=== PATIENT | male | born 1990 | race American Indian/Alaskan Native ===

== ENCOUNTER 2018-03-11 14:18 | Inpatient (IN) | payer OTHER ==
--- NOTE | 2018-03-11 14:32 | C.PDOC ---
History Of Present Illness 27 year old male presents to the ED for evaluation of left ankle injury that happened while playing soccer on 03/09/18. Patient states that foot accidnetaly "went back". Patient reports having swelling despite elevating the foot, patient also had outpatient MRI and XRays done. Patient is unable to weight bear. Patient denies other associated injuries, weakness, numbness. INJURY LEFT ANKLE 03/09/18. ONSET WHILE PLAYING SOCCER, PS FOOT ACCIDENTALLY "WENT BACK". INC PAIN, SWELLING DESPITE ELEVATION. UNABLE TO WEIGHT BEAR. DENIES OTHER ASSOC INJURY, SX. SP OUTPT MRI, XRAYS EXAM MILD DIST NONTOXIC EXT LLE +MOD/SEVERE SWELLING L ANKLE/FOOT W GEN TEND, NO GROSS DISLOCATION. LIMTIED ROM DUE TO SWELL, PAIN. +CAP REFILL <2 SECS TOES. WARM. +BRUISING DEPENDENT. SKIN INTACT NO ERYTHEMA NEURO NO FOCAL DEF LIMTIED DUE TO CLIN COND GAIT CRUTCH ASSISTANCE REMAINDER NEG MDM SEVERE ANKLE FX W ASSOC SWELL. D/W ORTHO PLASTIC ROLLER, PT TO BE ADMITTED FOR O.R. ORIF. ADMIT MEDICINE Time Seen by Provider: 03/11/18 14:29 Chief Complaint (Nursing): Lower Extremity Problem/Injury History Per: Patient History/Exam Limitations: no limitations Onset/Duration Of Symptoms: Days (2) Current Symptoms Are (Timing): Still Present Severity: Mild Recent travel outside of the [place]: No Additional History Per: Patient - Ankle/Foot Description Of Injury: Other Currently Unable To: Bear Weight Past Medical History Reviewed: Historical Data, Nursing Documentation, Vital Signs Vital Signs: Last Vital Signs Temp 98.2 F 03/11/18 14:22 Pulse 92 H 03/11/18 14:22 Resp 20 03/11/18 14:22 BP 117/73 03/11/18 14:22 Pulse Ox 99 03/11/18 14:59 - Medical History PMH: No Chronic Diseases Surgical History: No Surg Hx Family History: States: Unknown Family Hx - Social History Hx Alcohol Use: Yes Hx Substance Use: No Review Of Systems Constitutional: Negative for: Fever, Chills Respiratory: Negative for: Shortness of Breath Gastrointestinal: Negative for: Nausea, Vomiting Musculoskeletal: Positive for: Foot Pain Skin: Negative for: Rash Neurological: Negative for: Weakness, Numbness Physical Exam - Physical Exam Appears: Non-toxic, In Acute Distress (due to pain) Skin: Normal Color, Warm, Dry Head: Atraumatic, Normacephalic Eye(s): bilateral: Normal Inspection Neck: Normal ROM, Supple Chest: Symmetrical Cardiovascular: Rhythm Regular Respiratory: Normal Breath Sounds, No Rales, No Rhonchi, No Wheezing Extremity: No Normal ROM (limited due to swelling left ankle/foot), Tenderness ( left ankle/foot general tenderness), Capillary Refill (< 2 seconds), Swelling ( moderate/severe left ankle/foot), Other (no gross dislocation) Extremity: Left: Normal Color And Temperature (bruising noted, no erythema) Pulses: Left Dorsalis Pedis: Normal, Right Dorsalis Pedis: Normal Neurological/Psych: Oriented x3, Normal Speech, Other (non focal, limited due to clinical condition) Gait: With Assistance (crutch) ED Course And Treatment - Laboratory Results Result Diagrams: 03/11/18 15:14 03/11/18 15:14 ECG: Interpreted By Me, Viewed By Me ECG Rhythm: Sinus Rhythm ECG Interpretation: Normal Rate From EC (BPM) O2 Sat by Pulse Oximetry: 99 (On RA) Pulse Ox Interpretation: Normal - Radiology CXR: Interpreted by Me CXR Interpretation: Yes: No Acute Disease - Other Rad L ANKLE X-Ray: Interpreted by Me (MED, POSTERIOR MALL FX; NO DISLOC) Progress - Re-Evaluation Re-evaluation Note: 03/11/18 14:45 D/W DR GONZALEZ: AWARE OF ER FINDINGS. PREOP, PODIATRY RESIDENT, WILL CONSULT, ADMIT DR ROWELL C/F DR IRELAND 03/11/18 14:32 D/W DR SOTO C/F PMD AWARE OF ER FINDINGS, WILL ADMIT. 03/11/18 14:35 D/W PODIATRY RESIDENT, WILL EVAL IN ER - Data Reviewed Data Reviewed: Lab, Diagnostic imaging, EKG, Old records - Continuity of Care Discussed patient case with:: Covering for PMD Discussed pt. case with hospice consultant/specialty: Orthopedic Surgery, Podiatry Medical Decision Making Medical Decision Making: Impression: left ankle/foot fracture Plan: * Labs * EKG * CXR * IV fluids * Morphine 2 mg IVP * Zofran 4 mg IVP * Left ankle X-Ray * CT lower extremity * UA Severe ankle fracture with associated swelling. Discussed with ortho business analyst consultant, patient to be admitted for OR ORIF. Admitted to Medicine Disposition Counseled Patient/Family Regarding: Studies Performed, Diagnosis - Disposition Disposition: HOSPITALIZED Disposition Time: 14:32 Condition: STABLE - POA Present On Arrival: Falls Or Trauma - Clinical Impression Clinical Impression: Ankle fracture - Scribe Statement The provider has reviewed the documentation as recorded by the Scribe John Gibbs All medical record entries made by the Scribe were at my direction and personally dictated by me. I have reviewed the chart and agree that the record accurately reflects my personal performance of the history, physical exam, medical decision making, and the department course for this patient. I have also personally directed, reviewed, and agree with the discharge instructions and disposition. Decision To Admit - Pt Status Changed To: Hospital Disposition Of: Inpatient - Admit Certification Admit to Inpatient:: After my assessment, the patient will require hospitalization for at least two midnights. This is because of the severity of symptoms shown, intensity of services needed, and/or the medical risk in this patient being treated as an outpatient. - InPatient: Physician Admission Certification: I certify that this patient requires 2 or more midnights of care for the following reason:: SEE NOTE - . Bed Request Type: Regular Admitting Physician: Jade Soto Patient Diagnosis: Ankle fracture
[2018-03-11] MEDS ORDERED: Sodium Chloride 0.9% 1,000 ML IV ONE (14:33)
[2018-03-11] MEDS ORDERED: Sodium Chloride 0.9% 1,000 ML ONE (14:56)
[2018-03-11 15:25] LABS: BASO % 0.5 % (0.0-2.0); EOS # 0.1 K/uL (0.0-0.7); EOS % 1.1 % (0.0-4.0); HEMOGLOBIN 12.3 g/dL (12.0-18.0); LYMPH # 1.2 K/uL (1.0-4.3); LYMPH % 14.6 % (20.0-40.0); MEAN CELL VOLUME 86.4 fL (80.0-94.0); MEAN CORPUSCULAR HGB CONC 33.6 g/dL (33.0-37.0); MEAN PLATELET VOLUME 7.9 fL (7.2-11.7); MONO # 0.6 K/uL (0.0-0.8); MONO % 7.4 % (0.0-10.0); NEUT # 6.3 K/uL (1.8-7.0); NEUT % 76.4 % (50.0-75.0); RBC 4.25 Mil/uL (4.40-5.90); RED CELL DISTRIBUTION WIDTH 13.7 % (11.5-14.5); WHITE BLOOD COUNT 8.2 K/uL (4.8-10.8)
[2018-03-11 15:34] LABS: SQUAMOUS EPITHIAL < 1 /hpf (0-5); URINE BILIRUBIN NEGATIVE (NEGATIVE); URINE BLOOD NEGATIVE (NEGATIVE); URINE CLARITY Clear (Clear); URINE COLOR Yellow (YELLOW); URINE GLUCOSE (UA) NORMAL (Normal); URINE LEUKOCYTE ESTERASE NEG Leu/uL (Negative); URINE PROTEIN NEGATIVE (NEGATIVE); URINE UROBILINOGEN NORMAL mg/dL (0.2-1.0)
[2018-03-11 15:34] LABS: PROTHROMBIN TIME 11.4 SECONDS (9.7-12.2)
[2018-03-11 15:35] LABS: ALB/GLOB RATIO 1.7 (1.0-2.1); ALBUMIN 4.7 g/dL (3.5-5.0); ALT/SGPT 26 U/L (21-72); AST/SGOT 28 U/L (17-59); BLOOD UREA NITROGEN 13 mg/dL (9-20); CALCIUM 9.7 mg/dl (8.6-10.4); GFR AFRICAN-AMERICAN > 60; GFR NON-AFRICAN AMERICAN > 60
--- NOTE | 2018-03-11 15:44 | CP.PCM.HP ---
Addendum entered and electronically signed by Janes [place] 03/11/18 18:46: Plans for ORIF tomorrow Chest X-ray: No active disease EKG: NSR @ 70 BPM CBC and CMP wnl Patient has a low risk of complications for the procedure Original Note: <[place] - Last Filed: 03/11/18 18:29> History of Present Illness - History of Present Illness History of Present Illness: CC : Left ankle pain HPI: Patient is a 27 year old male with past medical history of childhood asthma who presents to the ED with complaints of left ankle injury that occurred on 03/09/18, while playing soccer. Patient reports that he twisted his ankle in lateral and backwards position while playing soccer. After the injury, patient was unable to bear weight, therefore, he borrowed his neighbor's crutches and kept his foot elevated. Furthermore, patient was seen at [facility] and was discharge with a script for outpatient MRI and XRays and naproxen. Patient reported to the ED today due to noted fracture on imaging outpatient. Patient admits to 04/25 left ankle pain but denies any other discomfort such as chest pain, SOB, palpitations, dizziness, left leg numbness and tingling. PMD: None PMHX: Childhood asthma PSHx: empyema drainage ( Head) FHX: Denies Medications: Denies Allergies: NKDA Social Hx: lives with family, student. Admits to 1/2 [facility] for 5 years, One alcoholic drink per week and denies any illicit drug use Present on Admission - Present on Admission Any Indicators Present on Admission: No Review of Systems - Constitutional Constitutional: absent: Chills, Fever - EENT Eyes: absent: Blurred Vision, Change in Vision - Cardiovascular Cardiovascular: Leg Edema. absent: Chest Pain, Diaphoresis, Dyspnea, Lightheadedness, Palpitations - Respiratory Respiratory: absent: Dyspnea - Gastrointestinal Gastrointestinal: absent: Abdominal Pain, Nausea, Vomiting - Musculoskeletal Musculoskeletal: Limited Range of Motion Additional comments: Left ankle limited ROM - Neurological Neurological: absent: Disequilibrium, Dizziness, Numbness, Headaches, Lack of Coordination, Loss of Vision, Tingling, Weakness - Endocrine Endocrine: absent: Fatigue, Palpitations Past Patient History - Past Social History Smoking Status: Never Smoked - PSYCHIATRIC Hx Substance Use: No - SURGICAL HISTORY Hx Surgeries: No Meds Allergies/Adverse Reactions: Allergies Allergy/AdvReac Type Severity Reaction Status Date / Time No Known Allergies Allergy Unverified 03/11/18 14:26 Physical Exam - Constitutional Appears: No Acute Distress - Head Exam Head Exam: ATRAUMATIC, NORMAL INSPECTION - Eye Exam Eye Exam: EOMI, Normal appearance - ENT Exam ENT Exam: Mucous Membranes Moist - Respiratory Exam Respiratory Exam: Clear to Auscultation Bilateral, NORMAL BREATHING PATTERN. absent: Prolonged Expiratory Phase, Rhonchi, Wheezes, Respiratory Distress - Cardiovascular Exam Cardiovascular Exam: REGULAR RHYTHM, +S1, +S2. absent: Systolic Murmur - GI/Abdominal Exam GI & Abdominal Exam: Normal Bowel Sounds, Soft. absent: Distended, Firm, Guarding, Tenderness - Extremities Exam Extremities exam: Positive for: joint swelling Additional comments: Left ankle swelling s/p medial malleolar fracture - Neurological Exam Neurological exam: Alert, CN II-XII Intact, Oriented x3 - Psychiatric Exam Psychiatric exam: Normal Affect - Skin Skin Exam: Normal Color Results - Vital Signs Recent Vital Signs: Last Vital Signs Temp 98.2 F 03/11/18 14:22 Pulse 92 H 03/11/18 14:22 Resp 20 03/11/18 14:22 BP 117/73 03/11/18 14:22 Pulse Ox 99 03/11/18 14:59 - Labs Result Diagrams: 03/11/18 15:14 03/11/18 15:14 Labs: Laboratory Results - last 24 hr 03/11/18 03/11/18 03/11/18 15:14 15:14 15:14 WBC 8.2 RBC 4.25 L Hgb 12.3 Hct 36.7 MCV 86.4 MCH 29.0 MCHC 33.6 RDW 13.7 Plt Count 236 MPV 7.9 Neut % (Auto) 76.4 H Lymph % (Auto) 14.6 L Gooding % (Auto) 7.4 Eos % (Auto) 1.1 Baso % (Auto) 0.5 Neut # (Auto) 6.3 Lymph # (Auto) 1.2 Gooding # (Auto) 0.6 Eos # (Auto) 0.1 Baso # (Auto) 0.0 PT 11.4 INR 1.0 APTT 32 Sodium 143 Potassium 4.1 Chloride 103 Carbon Dioxide 28 Anion Gap 16 BUN 13 Creatinine 1.1 Est GFR ( Amer) > 60 Est GFR (Non-Af Amer) > 60 Random Glucose 80 Calcium 9.7 Total Bilirubin 0.6 AST 28 ALT 26 Alkaline Phosphatase 47 Total Protein 7.5 Albumin 4.7 Globulin 2.8 Albumin/Globulin Ratio 1.7 Urine Color Urine Clarity Urine pH Ur Specific [place] Urine Protein Urine Glucose (UA) Urine Ketones Urine Blood Urine Nitrate Urine Bilirubin Urine Urobilinogen Ur Leukocyte Esterase Urine WBC (Auto) Urine RBC (Auto) Ur Squamous Epith Cells Blood Type 03/11/18 03/11/18 15:18 15:18 WBC RBC Hgb Hct MCV MCH MCHC RDW Plt Count MPV Neut % (Auto) Lymph % (Auto) Gooding % (Auto) Eos % (Auto) Baso % (Auto) Neut # (Auto) Lymph # (Auto) Gooding # (Auto) Eos # (Auto) Baso # (Auto) PT INR APTT Sodium Potassium Chloride Carbon Dioxide Anion Gap BUN Creatinine Est GFR ( Amer) Est GFR (Non-Af Amer) Random Glucose Calcium Total Bilirubin AST ALT Alkaline Phosphatase Total Protein Albumin Globulin Albumin/Globulin Ratio Urine Color Yellow Urine Clarity Clear Urine pH 6.0 Ur Specific [place] 1.013 Urine Protein Negative Urine Glucose (UA) Normal Urine Ketones Negative Urine Blood Negative Urine Nitrate Negative Urine Bilirubin Negative Urine Urobilinogen Normal Ur Leukocyte Esterase Neg Urine WBC (Auto) 2 Urine RBC (Auto) < 1 Ur Squamous Epith Cells < 1 Blood Type B POSITIVE Assessment & Plan (1) Medial malleolar fracture Assessment and Plan: Consult, Orthopedics, Dr. Mtz---> Help appreciated * Management as per recommendation * Plans for ORIF 03/12/18 Imaging: Lower extremity CT (03/11/18): Horizontally oriented fracture deformity through the medial malleolus of the distal tibia with extension to the circumferential cortices as well as intra-articular extension. Vertically-oriented intra- articular fracture deformity through the posterior malleolus of the distal tibia. Punctate ossific density seen at the expected location of the posterior talofibular ligament, nonspecific. Small avulsion injury can't be excluded. Clinical correlation. Correlation with MRI may be helpful if clinically indicated. Left ankle X-ray (03/11/18): Medial malleolar fracture, acute. Medications: * Morphine 2mg IV q4h prn * Morphine 1mg IV q4h prn Status: Acute (2) Prophylactic measure Assessment and Plan: DVT: Heparin 5,000 units once GI: Pepcid 20mg PO BID All plans and management discussed with Dr. Soto Status: Acute <BrittanyJade V - Last Filed: 03/11/18 22:27> Results - Vital Signs Recent Vital Signs: Last Vital Signs Temp 98.2 F 03/11/18 14:22 Pulse 92 H 03/11/18 14:22 Resp 20 03/11/18 14:22 BP 117/73 03/11/18 14:22 Pulse Ox 99 03/11/18 15:43 - Labs Result Diagrams: 03/11/18 15:14 03/11/18 15:14 Labs: Laboratory Results - last 24 hr 03/11/18 03/11/18 03/11/18 15:14 15:14 15:14 WBC 8.2 RBC 4.25 L Hgb 12.3 Hct 36.7 MCV 86.4 MCH 29.0 MCHC 33.6 RDW 13.7 Plt Count 236 MPV 7.9 Neut % (Auto) 76.4 H Lymph % (Auto) 14.6 L Gooding % (Auto) 7.4 Eos % (Auto) 1.1 Baso % (Auto) 0.5 Neut # (Auto) 6.3 Lymph # (Auto) 1.2 Gooding # (Auto) 0.6 Eos # (Auto) 0.1 Baso # (Auto) 0.0 PT 11.4 INR 1.0 APTT 32 Sodium 143 Potassium 4.1 Chloride 103 Carbon Dioxide 28 Anion Gap 16 BUN 13 Creatinine 1.1 Est GFR ( Amer) > 60 Est GFR (Non-Af Amer) > 60 Random Glucose 80 Calcium 9.7 Total Bilirubin 0.6 AST 28 ALT 26 Alkaline Phosphatase 47 Total Protein 7.5 Albumin 4.7 Globulin 2.8 Albumin/Globulin Ratio 1.7 Urine Color Urine Clarity Urine pH Ur Specific [place] Urine Protein Urine Glucose (UA) Urine Ketones Urine Blood Urine Nitrate Urine Bilirubin Urine Urobilinogen Ur Leukocyte Esterase Urine WBC (Auto) Urine RBC (Auto) Ur Squamous Epith Cells Blood Type Antibody Screen 03/11/18 03/11/18 15:18 15:18 WBC RBC Hgb Hct MCV MCH MCHC RDW Plt Count MPV Neut % (Auto) Lymph % (Auto) Gooding % (Auto) Eos % (Auto) Baso % (Auto) Neut # (Auto) Lymph # (Auto) Gooding # (Auto) Eos # (Auto) Baso # (Auto) PT INR APTT Sodium Potassium Chloride Carbon Dioxide Anion Gap BUN Creatinine Est GFR ( Amer) Est GFR (Non-Af Amer) Random Glucose Calcium Total Bilirubin AST ALT Alkaline Phosphatase Total Protein Albumin Globulin Albumin/Globulin Ratio Urine Color Yellow Urine Clarity Clear Urine pH 6.0 Ur Specific [place] 1.013 Urine Protein Negative Urine Glucose (UA) Normal Urine Ketones Negative Urine Blood Negative Urine Nitrate Negative Urine Bilirubin Negative Urine Urobilinogen Normal Ur Leukocyte Esterase Neg Urine WBC (Auto) 2 Urine RBC (Auto) < 1 Ur Squamous Epith Cells < 1 Blood Type B POSITIVE Antibody Screen Negative Assessment & Plan (1) Prophylactic measure Status: Acute (2) Ankle fracture Status: Acute Attending/Attestation - Attestation I have personally seen and examined this patient.: Yes I have fully participated in the care of the patient.: Yes I have reviewed all pertinent clinical information: Yes Notes (Text): Patient seen, examined, and case discussed with registered medical assistant. The patient was playing soccer fell and injured his left ankle. It went [facility] but was discharged with naproxen and scripts to do follow-up imaging. Patient was seen by his primary care recommended to come to the hospital for admission under the hospitalist service and orthopedic evaluation. Patient has no prior medical history and is relatively healthy individual. Assessment/Plan 1) Left Ankle Injury Left Ankle Fracture Assessment/Plan Orthopedic is on the case. Orthopedic responsible for preoperative intraoperative and postoperative management. Anticoagulation per orthopedic. Patient has completed chest x-ray which shows no active disease. Patient has completed CT lower extremity which indicates a horizontal oriented fracture deformity through the medial malleolus of the distal tibia with extension to the circumferential cortices as well as intra-articular extension. Vertical orientated intra-articular fracture deformity through the posterior malleolus of the distal tibia. A punctate ossific density seen at the expected location of the posterior talofibular ligament nonspecific small evulsion injury cannot be excluded. Left ankle fracture showing acute medial medical malleolar fracture. We'll start morphine 2 mg IV every 4 for severe pain and morphine 1 mg IV for moderate pain. We'll start Zofran 4 mg IV every 6 when necessary for nausea. Patient is scheduled tentatively for the OR tomorrow. Patient is a low risk individual with no prior history. Surgery and anesthesia to explain the risks and benefits of procedure with the patient prior to or respectively.
--- NOTE | 2018-03-11 16:23 | CT ---
CT left ankle History: Trauma. Comparison: None available. Technique: Multiple contiguous axial images were performed through the left ankle without the use of intravenous contrast. Subsequently, sagittal and coronal reformatted images were obtained. This CT exam was performed using one or more of the following dose reduction techniques: Automated exposure control, adjustment of the mA and/or kV according to patient size, and/or use of iterative reconstruction technique. Findings: Prominent medial and lateral malleolar soft tissue swelling. Horizontally oriented fracture deformity through the medial malleolus of the distal tibia with extension to the circumferential cortices as well as intra-articular extension. Vertically-oriented intra-articular fracture deformity through the posterior malleolus of the distal tibia. Punctate ossific density seen at the expected location of the posterior talofibular ligament, nonspecific. Small avulsion injury can't be excluded. Clinical correlation. Correlation with MRI may be helpful if clinically indicated. Impression: Horizontally oriented fracture deformity through the medial malleolus of the distal tibia with extension to the circumferential cortices as well as intra-articular extension. Vertically-oriented intra-articular fracture deformity through the posterior malleolus of the distal tibia. Punctate ossific density seen at the expected location of the posterior talofibular ligament, nonspecific. Small avulsion injury can't be excluded. Clinical correlation. Correlation with MRI may be helpful if clinically indicated.
--- NOTE | 2018-03-11 16:30 | RAD ---
PROCEDURE: CHEST RADIOGRAPH, 1 VIEW HISTORY: Pre Op COMPARISON: None available. FINDINGS: LUNGS: Clear. PLEURA: No pneumothorax or pleural fluid seen. CARDIOVASCULAR: Normal. OSSEOUS STRUCTURES: No significant abnormalities. VISUALIZED UPPER ABDOMEN: Normal. OTHER FINDINGS: None. IMPRESSION: No active disease. Concordant results with the preliminary interpretation rendered by the emergency department physician procedure.
--- NOTE | 2018-03-11 16:30 | RAD ---
PROCEDURE: Left Ankle Radiographs. HISTORY: TRAUMA COMPARISON: March 11, 2018. CT left ankle. FINDINGS: BONES: Distal fibular fracture, old lateral malleolar region. JOINTS: Normal. No osteoarthritis. Ankle mortise maintained. Talar dome intact SOFT TISSUES: Soft tissue swelling attests to the acuity of the fracture. OTHER FINDINGS: None. IMPRESSION: Medial malleolar fracture, acute.
[2018-03-12 06:39] LABS: BASO % 0.7 % (0.0-2.0); EOS # 0.3 K/uL (0.0-0.7); HEMOGLOBIN 11.9 g/dL (12.0-18.0); LYMPH # 2.3 K/uL (1.0-4.3); LYMPH % 36.6 % (20.0-40.0); MEAN CELL VOLUME 87.4 fL (80.0-94.0); MEAN CORPUSCULAR HEMOGLOBIN 29.4 pg (27.0-31.0); MEAN CORPUSCULAR HGB CONC 33.7 g/dL (33.0-37.0); MEAN PLATELET VOLUME 8.1 fL (7.2-11.7); MONO # 0.5 K/uL (0.0-0.8); MONO % 8.4 % (0.0-10.0); NEUT # 3.2 K/uL (1.8-7.0); NEUT % 50.3 % (50.0-75.0); RBC 4.06 Mil/uL (4.40-5.90); RED CELL DISTRIBUTION WIDTH 13.7 % (11.5-14.5); WHITE BLOOD COUNT 6.3 K/uL (4.8-10.8)
[2018-03-12 06:48] LABS: ALB/GLOB RATIO 1.5 (1.0-2.1); ALBUMIN 3.9 g/dL (3.5-5.0); ALT/SGPT 25 U/L (21-72); AST/SGOT 24 U/L (17-59); BLOOD UREA NITROGEN 14 mg/dL (9-20); CALCIUM 9.1 mg/dl (8.6-10.4); GFR AFRICAN-AMERICAN > 60; GFR NON-AFRICAN AMERICAN > 60
[2018-03-12] MEDS ORDERED: ceFAZolin IV 1 gm in Dextrose 2 GM/100 ML BAG IVPB ONE ×2 (07:33→09:55)
[2018-03-12] MEDS ORDERED: Midazolam 2 MG/2 ML VIAL ONE (07:37)
[2018-03-12] MEDS ORDERED: Propofol 10 mg/ml Inj (20 ML) ONE ×2 (07:38→09:47)
[2018-03-12] MEDS ORDERED: Rocuronium 10 mg/ml (5 ml) ONE (07:39)
[2018-03-12] MEDS ORDERED: ePHEDrine 50 mg/ml Inj ONE (08:09)
[2018-03-12] MEDS ORDERED: Oxycodone/Acetaminophen 5/325 mg Tab PO PRN ×2 (10:19)
[2018-03-12] MEDS ORDERED: HYDROmorphone 0.5 mg/0.5 ml ISec IVP PRN (10:28)
[2018-03-12 10:47] VITALS: O2SAT 100
[2018-03-12] MEDS ORDERED: Bupivacaine HCl 0.5% PF (30 ml) Inj ONE (11:04)
[2018-03-12] MEDS ORDERED: Lidocaine Hydrochloride 5 ML INJ ONE (11:04)
[2018-03-12] MEDS ORDERED: Bupivacaine 0.5% Inj(30mL) IJ ONE (11:18)
--- NOTE | 2018-03-12 11:28 | PCM.ANESB2 ---
Popliteal Nerve Block - Popliteal Nerve Block Date of Procedure: 03/12/18 Anesthesiologist: Gabriela Pre-Procedure Diagnosis: left ankle ORIF Post-Procedure Diagnosis: same Procedure Performed: Popliteal Nerve Block Left - Procedure Popliteal Nerve Block: This procedure was explained to the patient that it is for post-operative pain management. Consent was obtained after a thorough discussion with the patient regarding the benefits and possible complications of local anesthetic block of the sciatic nerve at the popliteal level. The patient was brought to the operating room and standard monitors are applied. Time-out was held with the circulating nurse to confirm the correct surgery and the appropriate block. After applying oxygen by nasal cannula and administering IV Sedation, patient's operative leg was gently raised and supported and the groove in between the biceps femoris and vastus lateralis muscles was carefully palpated. The skin approximately 8cm above the popliteal crease was then marked. The ultrasound transducer was then applied to the posterior thigh approximately 8cm above the popliteal crease in the transverse plane and the sciatic nerve before its division was visualized lateral to the popliteal artery and in between the bicep femoris and semimembranosus/semitendinosus muscles. After identification, the lateral portion of the thigh was prepped with Betadine solution three times and Lidocaine 1% was injected subcutaneously for topical anesthesia. At this point, a # 21 gauge Stimuplex insulated 4 inch needle was inserted into pre-marked area and advanced in a perpendicular direction. The needle was inserted above the ultrasound transducer in-plane towards the sciatic nerve in a [id number] direction. Needle advancement was performed carefully under direct ultrasound visualization. Nerve stimulator was used and dorsiflexion of the __left___ foot was elicited at a current of __0.4___ MA. After repeated negative aspiration, __5___cc of __0.5___ % __Bupivacaine was injected and this was flowed with __25____ cc of __0.5____% __Bupivacaine ___. Under ultrasound guidance the local anesthetics were observed surrounding sciatic nerve . The needle was removed intact and sterile dressing was applied. The patient tolerated the popliteal nerve block well with stable vital signs and was subsequently prepared for the surgery.
--- NOTE | 2018-03-12 11:43 | CP.PCM.PN ---
Subjective - Date & Time of Evaluation Date of Evaluation: 03/12/18 Time of Evaluation: 07:05 - Subjective Subjective: Medicine progress note ( Dr. Yaya Way's service) Pateint was seen and examined at bedside. Patient states he is doing well. Patient denies fever, chills, chest pain, SOB, palpitations, dizziness or any other discomfort. During the encounter, patient's pain was very well controlled. Objective - Vital Signs/Intake and Output Vital Signs (last 24 hours): Temp Pulse Resp BP Pulse Ox 97.2 F L 85 15 131/81 100 03/12/18 11:00 03/12/18 11:00 03/12/18 11:00 03/12/18 11:00 03/12/18 11:00 Intake and Output: 03/12/18 03/12/18 06:59 18:59 Intake Total 0 1400 Output Total 400 Balance -400 1400 - Medications Medications: Current Medications Acetaminophen (Tylenol 325mg Tab) 650 mg PO Q6 PRN PRN Reason: Pain, Mild (1-3) Famotidine (Pepcid) 20 mg PO BID VALENCIA Last Admin: 03/11/18 18:16 Dose: 20 mg Hydromorphone HCl (Dilaudid) 0.5 mg IVP Q5M PRN PRN Reason: Pain, moderate (4-7) Stop: 03/12/18 12:28 Last Admin: 03/12/18 10:56 Dose: 0.5 mg Morphine Sulfate (Morphine) 2 mg IVP Q4 PRN PRN Reason: Pain, severe (8-10) Last Admin: 03/12/18 05:44 Dose: 2 mg Morphine Sulfate (Morphine) 1 mg IVP Q4 PRN PRN Reason: Pain, moderate (4-7) Last Admin: 03/12/18 02:10 Dose: 1 mg Ondansetron HCl (Zofran Inj) 4 mg IVP Q6H PRN PRN Reason: Nausea/Vomiting Oxycodone/Acetaminophen (Percocet 5/325 Mg Tab) 1 tab PO Q4H PRN PRN Reason: Pain, moderate (4-7) Stop: 03/15/18 10:20 Oxycodone/Acetaminophen (Percocet 5/325 Mg Tab) 2 tab PO Q4H PRN PRN Reason: Pain, severe (8-10) Stop: 03/15/18 10:20 - Labs Labs: 03/12/18 06:21 03/12/18 06:21 PT 11.4 SECONDS (9.7-12.2) 03/11/18 15:14 INR 1.0 03/11/18 15:14 APTT 32 SECONDS (21-34) 03/11/18 15:14 - Constitutional Appears: Well, No Acute Distress - Head Exam Head Exam: ATRAUMATIC, NORMAL INSPECTION - Eye Exam Eye Exam: EOMI - ENT Exam ENT Exam: Mucous Membranes Moist - Respiratory Exam Respiratory Exam: Clear to Ausculation Bilateral, NORMAL BREATHING PATTERN. absent: Prolonged Expiratory Phase, Rhonchi, Wheezes, Respiratory Distress - Cardiovascular Exam Cardiovascular Exam: REGULAR RHYTHM, +S1, +S2. absent: Murmur - GI/Abdominal Exam GI & Abdominal Exam: Soft, Normal Bowel Sounds. absent: Firm, Guarding, Rigid, Tenderness - Extremities Exam Extremities Exam: Joint Swelling Additional comments: Left ankle swelling s/p medial malleolar fracture ROCHELLE wrap for compression present with elevation - Neurological Exam Neurological Exam: Alert, Awake, Oriented x3 - Psychiatric Exam Psychiatric exam: Normal Affect - Skin Skin Exam: Normal Color Assessment and Plan (1) Medial malleolar fracture Assessment & Plan: onsult, Orthopedics, Dr. Mtz---> Help appreciated * Management as per recommendation * Plans for ORIF 03/12/18, we follow up post-op Imaging: Lower extremity CT (03/11/18): Horizontally oriented fracture deformity through the medial malleolus of the distal tibia with extension to the circumferential cortices as well as intra-articular extension. Vertically-oriented intra- articular fracture deformity through the posterior malleolus of the distal tibia. Punctate ossific density seen at the expected location of the posterior talofibular ligament, nonspecific. Small avulsion injury can't be excluded. Clinical correlation. Correlation with MRI may be helpful if clinically indicated. Left ankle X-ray (03/11/18): Medial malleolar fracture, acute. Medications: * Morphine 2mg IV q4h prn * Morphine 1mg IV q4h prn * OIL PRODUCER pump, post-Op Status: Acute (2) Prophylactic measure Assessment & Plan: DVT: Heparin 5,000 units once GI: Pepcid 20mg PO BID All plans and management discussed with Dr. Yaya Way Status: Acute
--- NOTE | 2018-03-12 12:39 | RAD ---
PROCEDURE: Intraoperative Fluoroscopy. HISTORY: Fracture left ankle FINDINGS: Fluoroscopic assistance was provided for open reduction internal fixation of a left ankle fracture. Please refer to the operative report from KAYLIN Shipman DR, MD.
--- NOTE | 2018-03-12 14:41 | PCM.SURG1 ---
Surgeon's Initial Post Op Note - Surgeon's Notes Surgeon: Dr. Pedro Social Media Developer: Dr. Trista Chavez Type of Anesthesia: General Endo Anesthesia Administered By: Dr. Jaimes Pre-Operative Diagnosis: Left ankle displaced fracture of medial malleolus, non- displaced fracture of posterior malleolus, syndesmotic rupture Operative Findings: 4.0mm cancellous screw, Arthrex Tightrope, 2-0, 3-0 vicryl, surgical bereket Post-Operative Diagnosis: same Operation Performed: Left ankle open reduction and internal fixation Specimen/Specimens Removed: None Estimated Blood Loss: EBL {In ML}: 20 Blood Products Given: N/A Drains Used: No Drains Post-Op Condition: Good Date of Surgery/Procedure: 03/12/18 Time of Surgery/Procedure: 07:15
[2018-03-12 15:53] VITALS: BP 116/76; PULSE 85; RESP 16; TEMP 97.9
--- NOTE | 2018-03-12 15:56 | CP.PCM.DIS ---
Provider - Provider Date of Admission: 03/11/18 14:40 Attending physician: Jade Soto DO Time Spent in preparation of Discharge (in minutes): 45 Diagnosis - Discharge Diagnosis (1) Medial malleolar fracture Status: Acute (2) Prophylactic measure Status: Acute Hospital Course - Lab Results Lab Results: Most Recent Lab Values WBC 6.3 K/uL (4.8-10.8) 03/12/18 06:21 RBC 4.06 Mil/uL (4.40-5.90) L 03/12/18 06:21 Hgb 11.9 g/dL (12.0-18.0) L 03/12/18 06:21 Hct 35.5 % (35.0-51.0) 03/12/18 06:21 MCV 87.4 fL (80.0-94.0) 03/12/18 06:21 MCH 29.4 pg (27.0-31.0) 03/12/18 06:21 MCHC 33.7 g/dL (33.0-37.0) 03/12/18 06:21 RDW 13.7 % (11.5-14.5) 03/12/18 06:21 Plt Count 206 K/uL (130-400) 03/12/18 06:21 MPV 8.1 fL (7.2-11.7) 03/12/18 06:21 Neut % (Auto) 50.3 % (50.0-75.0) 03/12/18 06:21 Lymph % (Auto) 36.6 % (20.0-40.0) 03/12/18 06:21 [place] % (Auto) 8.4 % (0.0-10.0) 03/12/18 06:21 Eos % (Auto) 4.0 % (0.0-4.0) 03/12/18 06:21 Baso % (Auto) 0.7 % (0.0-2.0) 03/12/18 06:21 Neut # (Auto) 3.2 K/uL (1.8-7.0) 03/12/18 06:21 Lymph # (Auto) 2.3 K/uL (1.0-4.3) 03/12/18 06:21 [place] # (Auto) 0.5 K/uL (0.0-0.8) 03/12/18 06:21 Eos # (Auto) 0.3 K/uL (0.0-0.7) 03/12/18 06:21 Baso # (Auto) 0.0 K/uL (0.0-0.2) 03/12/18 06:21 PT 11.4 SECONDS (9.7-12.2) 03/11/18 15:14 INR 1.0 03/11/18 15:14 APTT 32 SECONDS (21-34) 03/11/18 15:14 Sodium 140 mmol/L (132-148) 03/12/18 06:21 Potassium 4.1 mmol/L (3.6-5.2) 03/12/18 06:21 Chloride 104 mmol/L (98-107) 03/12/18 06:21 Carbon Dioxide 27 mmol/L (22-30) 03/12/18 06:21 Anion Gap 13 (10-20) 03/12/18 06:21 BUN 14 mg/dL (9-20) 03/12/18 06:21 Creatinine 1.0 mg/dL (0.8-1.5) 03/12/18 06:21 Est GFR ( Amer) > 60 03/12/18 06:21 Est GFR (Non-Af Amer) > 60 03/12/18 06:21 Random Glucose 90 mg/dL (75-110) 03/12/18 06:21 Calcium 9.1 mg/dl (8.6-10.4) 03/12/18 06:21 Phosphorus 4.1 mg/dL (2.5-4.5) 03/12/18 06:21 Magnesium 2.2 mg/dL (1.6-2.3) 03/12/18 06:21 Total Bilirubin 0.5 mg/dL (0.2-1.3) 03/12/18 06:21 AST 24 U/L (17-59) 03/12/18 06:21 ALT 25 U/L (21-72) 03/12/18 06:21 Alkaline Phosphatase 43 U/L (38-126) 03/12/18 06:21 Total Protein 6.4 g/dL (6.3-8.3) 03/12/18 06:21 Albumin 3.9 g/dL (3.5-5.0) 03/12/18 06:21 Globulin 2.6 gm/dL (2.2-3.9) 03/12/18 06:21 Albumin/Globulin Ratio 1.5 (1.0-2.1) 03/12/18 06:21 Urine Color Yellow (YELLOW) 03/11/18 15:18 Urine Clarity Clear (Clear) 03/11/18 15:18 Urine pH 6.0 (5.0-8.0) 03/11/18 15:18 Ur Specific [place] 1.013 (1.003-1.030) 03/11/18 15:18 Urine Protein Negative mg/dL (NEGATIVE) 03/11/18 15:18 Urine Glucose (UA) Normal mg/dL (Normal) 03/11/18 15:18 Urine Ketones Negative mg/dL (NEGATIVE) 03/11/18 15:18 Urine Blood Negative (NEGATIVE) 03/11/18 15:18 Urine Nitrate Negative (NEGATIVE) 03/11/18 15:18 Urine Bilirubin Negative (NEGATIVE) 03/11/18 15:18 Urine Urobilinogen Normal mg/dL (0.2-1.0) 03/11/18 15:18 Ur Leukocyte Esterase Neg Avani/uL (Negative) 03/11/18 15:18 Urine WBC (Auto) 2 /hpf (0-5) 03/11/18 15:18 Urine RBC (Auto) < 1 /hpf (0-3) 03/11/18 15:18 Ur Squamous Epith Cells < 1 /hpf (0-5) 03/11/18 15:18 Blood Type B POSITIVE 03/11/18 15:18 Antibody Screen Negative 03/11/18 15:18 - Hospital Course Hospital Course: HPI ( As per admission): Patient is a 27 year old male with past medical history of childhood asthma who presents to the ED with complaints of left ankle injury that occurred on 03/09/18, while playing soccer. Patient reports that he twisted his ankle in lateral and backwards position while playing soccer. After the injury, patient was unable to bear weight, therefore, he borrowed his neighbor's crutches and kept his foot elevated. Furthermore, patient was seen at [facility] [place] and was discharge with a script for outpatient MRI and XRays and naproxen. Patient reported to the ED today due to noted fracture on imaging outpatient. Patient admits to 8/10 left ankle pain but denies any other discomfort such as chest pain, SOB, palpitations, dizziness, left leg numbness and tingling. Hospital Course: Patient was admitted with the diagnosis of left medial malleolar fracture. Orthopedics, Dr. Pedro was consulted, who performed a Left ankle open reduction and internal fixation on Day 2 of admission. Patient tolerated procedure well and was discharge with appropriate instructions and prescription by Dr. Pedro. Pertinent imaging: Lower extremity CT (03/11/18): Horizontally oriented fracture deformity through the medial malleolus of the distal tibia with extension to the circumferential cortices as well as intra-articular extension. Vertically-oriented intra- articular fracture deformity through the posterior malleolus of the distal tibia. Punctate ossific density seen at the expected location of the posterior talofibular ligament, nonspecific. Small avulsion injury can't be excluded. Clinical correlation. Correlation with MRI may be helpful if clinically indicated. Left ankle X-ray (03/11/18): Medial malleolar fracture, acute. Chest X-ray: No active disease EKG: NSR @ 70 BPM This is a brief summary of event. For a complete course, please refer to the medical records Discharge Exam - Head Exam Head Exam: ATRAUMATIC, NORMAL INSPECTION - Eye Exam Eye Exam: EOMI, Normal appearance - ENT Exam ENT Exam: Mucous Membranes Moist - Respiratory Exam Respiratory Exam: Clear to PA & Lateral, NORMAL BREATHING PATTERN. absent: Chest Wall Tenderness, Decreased Breath Sounds, Wheezes, Respiratory Distress - Cardiovascular Exam Cardiovascular Exam: REGULAR RHYTHM, +S1, +S2 - GI/Abdominal Exam GI & Abdominal Exam: Normal Bowel Sounds, Soft. absent: Distended, Firm, Hypoactive Bowel Sounds, Organomegaly, Tenderness, Unremarkable - Extremities Exam Additional comments: S/P Left ankle open reduction and internal fixation POD # 0 Dressing/ cast intact and clean - Neurological Exam Neurological exam: Alert, Oriented x3 - Psychiatric Exam Psychiatric exam: Normal Affect - Skin Skin Exam: Normal Color Discharge Plan - Follow Up Plan Condition: STABLE Disposition: HOME/ ROUTINE Instructions: Ankle Fracture (DC), Open Reduction and Internal Fixation Surgery (DC), Managing Pain After Surgery Additional Instructions: Please discharge patient home as per Dr. Pedro's request Please follow discharge instruction as given to patient's counselor prior to the surgery by Dr. Pedro Please follow up with Dr. Pedro at his office, Saturday, March 16, 2018 at 9: 30am No weight bearing on the left extremity or surgical site Please continue to use pain medication (Percocet ) and aspirin as instructed by Dr. Pedro Please use your crutches as instructed by Dr. Pedro and physical therapy Please return to the hospital if pain worsens, increasing swelling, loss of sensation Please take care Referrals: Lizzy Pedro MD [Staff Provider] -
--- NOTE | 2018-03-12 22:24 | CARD ---
APPROVED REPORT EKG Measurement Heart [id number] <Conclusion> Normal sinus rhythm Normal ECG
--- NOTE | 2018-03-18 02:08 | CP.PCM.CON ---
History of Present Illness - History of Present Illness History of Present Illness: 27 yo Male, no significant PMH presented to the ER at on 03/11/18 w/ Left ankle pain and swelling since 03/09/18. he states that on 03/09/18, he was playing recreational soccer when he twisted his L ankle, ankle hyper- plantarflexed and he landed on the L ankle resulting in immediate 10/10 pain and swelling at his left ankle. He has not been able to weight bear since the injury. He saw his PCP, Dr. Eldridge who referred him for x-rays and stat MRI L ankle. Once the results of the MRI and x-rays were reported to Dr. Eldridge, he referred the pt to the ER at . He requested orthopedic consultation, I evaluated the pt as an ER pt at on 03/11/18. I confirmed the above history and reviewed the imaging available. Review of imaging: x-rays L ankle 03/11/18 at = ++ displaced medial maleolus fracture, ++ min displaced posterior maleolus fracture, ++ syndesmotic widening MRI done at [facility] 03/10/18= ++ displaced medial maleolus fracture, ++ min displaced posterior maleolus fracture, ++ syndesmotic widening/tear, + AFTL and deltoid ligaments high-grade partial tears CT L ankle 03/11/18 at = ++ displaced medial maleolus fracture, ++ min displaced posterior maleolus fracture, ++ syndesmotic widening Past Patient History - Past Medical History & Family History Past Medical History?: Yes - Past Social History Smoking Status: Never Smoked - MUSCULOSKELETAL/RHEUMATOLOGICAL Hx Falls: No - PSYCHIATRIC Hx Substance Use: No - SURGICAL HISTORY Hx Surgeries: No - ANESTHESIA Hx Anesthesia: Yes Hx Anesthesia Reactions: No Meds Allergies/Adverse Reactions: Allergies Allergy/AdvReac Type Severity Reaction Status Date / Time No Known Allergies Allergy Unverified 03/11/18 14:26 Physical Exam - Extremities Exam Additional comments: Right Lower Extremity:-ttp, - swelling/warmth/redness, full ROM at all joints w/ o pain skin intact +5/5 motor strength hip flex/ext, knee flex/ext, ankle df/pf, toes up & down sensory intact L2-S1, DPN/SPN/TN, 2+ DP, BCR all toes calves soft/ nt B/L Left Lower Extremity: +++ global ttp worse at medial & posterior mal, ++ ttp at syndesmosis/ATFL/Deltoid ligaments +++ global swelling, skin intact, + deformity at medial mal -warmth/redness, full ROM at hip/knee/toes, ankle ROM limited by pain +5/5 motor strength hip flex/ext, knee flex/ext, ankle df/pf, toes up & down sensory intact L2-S1, DPN/SPN/TN, 2+ DP, BCR all toes Results - Vital Signs Recent Vital Signs: Last Vital Signs Temp 97.9 F 03/12/18 12:13 Pulse 85 03/12/18 12:13 Resp 16 03/12/18 12:13 BP 116/76 03/12/18 12:13 Pulse Ox 100 03/12/18 12:00 - Labs Result Diagrams: 03/12/18 06:21 03/12/18 06:21 Assessment & Plan (1) Ankle fracture Assessment and Plan: 27 yo Male w/ L ankle pain and swelling with inability to weight bear since 03/09, soccer injury, presented to the ER at on 03/11/18 referred by PCP, Dr. Eldridge Dx= L ankle #1 displaced medial maleolus fracture #2 min-displaced posterior maleolus fracture #3 syndesmotic instability/tear #4 high grade partial tear deltoid ligament #5 high grade partial tear ATFL Procedure= L ankle underwent closed reduction of medial mal/ posterior mal fx 's, closed tx ATFL/sydesmotic/deltoid tears and placement in well padded short leg splint in ER at on 03/11/18 PLAN: L ankle: -closed reduction and placement in short leg well padded splint in ER -x-ray, CT, MRI findings d/w pt at length -he is an active healthy young male, currently here on travel/work/ education program -indicated for surgical intervention= L ankle syndesmotic fixation/ medial maleolus fracture closed reduction & casting vs ORIF/ posterior mal closed reduction & casting/ closed tx ATFL partial tear/ possible open primary repair of deltoid ligament tear -the risks/benefits/alternaitive to surgery d/w pt at length -admitted tot he medical service under Dr. Catalan, pre-op labs/ekg/chest xray all wnl -strict NWB and elevation L ankle above level of heart at all times -ice L ankle -NPO after MN -overhead trapeze -placed on OR schedule for AM -post-op, will work with PT for ambulation with crutches and dc home w/ pain medication -followup in my office at [facility], [facility] within 1 week post-op, -any questions, updates, concerns, please contact me at [phone] Thank you for allowing me to contribute to the care of your patient. Lizzy Dai MD Orthopedic Surgery Status: Acute
--- NOTE | 2018-04-07 09:52 | OP ---
PROCEDURE DATE: 03/12/2018 PREOPERATIVE DIAGNOSES: Left ankle: 1. Displaced medial malleolus fracture. 2. Syndesmotic complete tear and instability. 3. Minimally displaced posterior malleolus fracture. 4. Anterior talofibular ligament partial tear. 5. Deltoid ligament high grade partial tear. POSTOPERATIVE DIAGNOSES: Left ankle: 1. Displaced medial malleolus fracture. 2. Syndesmotic complete tear and instability. 3. Minimally displaced posterior malleolus fracture. 4. Anterior talofibular ligament partial tear. 5. Deltoid ligament high grade partial tear and instability. PROCEDURES: Left ankle: 1. Open reduction and internal fixation of medial malleolus fracture. 2. Open fixation/repair of syndesmotic ligament. 3. Close reduction of posterior malleolus fracture. 4. Primary repair of deltoid ligament. 5. Closed treatment of anterior talofibular ligament tear. 6. Placement in well-padded short-leg cast. ANESTHESIA: General endotracheal anesthesia with a postop regional nerve block placed by anesthesia staff in PACU. SURGEON: Lizzy Dai MD [employer] BRUSHER ASSEMBLER: Laura Kelley PA-C JUSTIFICATION FOR [employer]BON BRUSHER ASSEMBLER: Laura Kelley is a certified physician food trades assistants whose skilled surgical services was an absolute necessity for successful completion of the procedure as he provided skilled surgical assistance with positioning of the patient, positioning of extremity, management of the surgical field, retraction of the neurovascular structures, provisional reduction and fixation of medial malleolus, placement of internal fixation hardware for medial malleolus, bone grafting of medial malleolus fracture, syndesmotic fixation and placement of fixation hardware, wound closure, closed reduction and placement in well-padded short-leg cast. Laura Kelley was present for the entire case and was an absolute necessity for successful completion of the procedure as a primary skilled surgical assistance. ESTIMATED BLOOD LOSS: 10 mL. TOURNIQUET TIME: 65 minutes at 350 mmHg. COMPLICATIONS: None. SPECIMEN: None. DRAINS: None. DISPOSITION: The patient was extubated and transferred to the PACU in stable condition and tolerated the procedure well. IMPLANTS: Synthes fully threaded 4.0 mm cancellus screw with washer from medial malleolus ORIF, 1 mL of DBM Putty as bone graft at fracture. [employer] syndesmotic TightRope x2. INDICATIONS FOR SURGERY: The patient is a 27-year-old male with no significant past medical history, who presents to the emergency room at [facility] ([facility] on 03/11/2018 with left ankle pain and swelling since 03/09/2018. He was referred by his primary care physician after review of imaging and determining his diagnosis as the patient had no splint and was walking around and had severe injury of the left ankle. He stated that on 03/09/2018, he was playing recreational soccer when he twisted his left ankle in [id number] landing on his left ankle resulting in immediate 10/10 pain and swelling in his left ankle with inability to weightbear. He saw his primary care physician, Dr. Onofre Eldridge, who referred him for x-rays and a stat MRI of the left ankle. Once the results of the MRI and the x-rays were reported to Dr. Eldridge, he referred the patient to the ER [facility] for immediate intervention. He requested orthopedic consultation, and I evaluated the patient as an ER patient at [facility] on 03/11/2018 initially. Review of imaging, x-rays of left ankle done on 03/11/2018 at [facility] showed a displaced medial malleolus fracture, minimally displaced posterior malleolus fracture, significant syndesmotic widening, significant medial space widening indicating deltoid tear as well. MRI done at [facility] as an outpatient on 03/10/2018 showed displaced medial malleolus fracture, minimally displaced posterior malleolus fracture, syndesmotic widening and tear of the syndesmotic ligament, partial tear of the ATFL, high-grade partial tear of the deltoid ligament. CT of the left ankle done on 03/11/2018 at [facility] showed displaced medial malleolus fracture, minimally displaced posterior malleolus fracture, significant syndesmotic widening and medial space widening. After evaluation of the patient in the ER and reviewing his activity level as well as his current status as an exchange student, we discussed treatment options. I reviewed at length with him the imaging that was obtained, especially the x-ray showing him the displaced medial malleolus fracture and the syndesmotic widening of the two critical points of his treatment. As a 27-year-old male, who is young, active, and healthy, recreationally engaged in sports. He was indicative for surgical intervention in the form of left ankle open reduction and internal fixation of medial malleolus fracture, open syndesmotic repair/fixation, possible open deltoid ligament repair if indicated, closed reduction of the posterior malleolus fracture under anesthesia, closed treatment of the ATFL injury and placement in a well-padded short leg cast with the posterior malleolus in a reduced position as well as the ATFL space. The risks, benefits, and alternatives of the procedure were discussed at length with the patient with the risk including, but not limited to infection, neurovascular damage, failure of implants, need for further surgery, malunion, nonunion, recurrence of injury, need for further surgery, development of chronic pain and disability, inability to return to preinjury level of activity and sports, development of blood clots including DVT and PE, anesthesia reactions including . After answering all of his questions, he stated that he understood the risks and wished to proceed with surgery. He was admitted to the medical service under the hospitalist, and PATs were ordered and carried out. Initially in the ER, he underwent a closed reduction and placement in a well-padded short-leg splint to provide stability to help with decrease of swelling. He stayed overnight in the hospital and had his left ankle elevated and iced. He was placed on the elective surgery schedule for the next morning. PATs were reviewed, and he was deemed low medical risk for the surgery. PROCEDURE IN DETAIL: The patient was identified in the preoperative holding area, and the left ankle was marked for surgery. The splint was removed, and the soft tissue was evaluated, and indeed, the swelling had markedly improved with his overnight admission with ice and elevation, and it was safe to proceed with surgery. Once again as described above, the risks, benefits, and alternatives to the procedure were discussed at length with the patient, and informed consent was obtained. After a brief discussion with anesthesia staff, the patient was taken to the operating room and placed on a well-padded operating room table with all bony prominences and superficial neurovascular structures well-padded with a radiolucent lower extremity attachment. General anesthesia was administered without difficulty or complication. Perioperative IV antibiotics were administered in the form of 2 gm Ancef IV. The left lower extremity was then evaluated and examined under anesthesia and under fluoroscopic visualization/imaging. Examination under anesthesia: Left ankle with full range of motion compared to contralateral ankle, improved swelling with intact skin, small blistering developing anteriorly. With dynamic fluoroscopic imaging, the syndesmotic instability and syndesmotic widening was observed with external rotation stress examination. The deltoid ligament appeared to be nonfunctional with complete opening of the medial joint space. Medial malleolus fracture was caught within the soft tissue and significantly displaced. I attempted to see if a closed reduction of the medial malleolus fracture would work, and even under general anesthesia, it was not possible. The piece would not webster in and remained displaced despite best efforts. The posterior malleolus fracture was minimally displaced, but appeared under fluoroscopic imaging to be amenable to an anatomic reduction to be achieved. A final time-out was done with the surgeon, anesthesia staff, and OR staff, all in agreement with the patient, procedure being done and the extremity being operated on. Left lower extremity was prepped and draped in the standard sterile fashion. The limb was exsanguinated, and the tourniquet was inflated for a total tourniquet time of 65 minutes at 350 mmHg. We started the procedure with approach to the medial malleolus and ORIF of the medial malleolus as well as primary deltoid repair. A curvilinear incision was made centered on the medial malleolus tip. The incision was made to skin, down to subcutaneous tissue while maintaining good hemostasis, and care taken not to damage the saphenous vein. The superficial deltoid fibers were identified and exposed and indeed were found to be almost completely torn. The fibers were retracted carefully, and the underlying deep deltoid fibers were also near completely torn. These deep and superficial fibers were tagged for future repair. The fibers were torn as a midsubstance partial tearing and amenable to primary repair. The fracture itself was identified and indeed to a significant in a postop tissue and periosteum, which was carefully debrided to expose the fracture edges. Interposed hematoma and soft tissue were carefully removed and the fracture was copiously irrigated. The medial malleolus fracture was anatomically reduced and confirmed under fluoroscopic imaging with biplanar imaging to be in anatomic reduction. Large reduction clamp was used to hold the reduction, and a K-wire for the decannulated screw system from [employer] was used to find the path for the screw. Due to the small size of the medial malleolus fragment, I do not believe that it would hold more than one screw and therefore one screw was placed essentially at the fracture perpendicular to the fracture plane in the medial malleolus fragment. With the pin in position, biplanar fluoroscopic imaging was used to confirm that the pin was in a good position and that there would be no intraarticular extension of the screw. My goal was to place the screw bicortically to allow for good bicortical fixation and compression. The path of the K-wire was then predrilled with a cannulated drill, and a 4.0 mm fully threaded screw from [employer] was used with a washer, measuring 42 mm in length and placed bicortical with good fixation and compression achieved. There was a small area anteriorly where there was a piece of anterior bone missing at the fracture despite an anatomic reduction, most likely from the patient walking on the injured ankle as well as significant comminution at this one position. With this bone loss, I decided to proceed with placement of 1 mL of DBM bone graft which was placed successfully after the wound was copiously irrigated. We then turned our attention to the primary repair of the deltoid ligament. With #2 FiberWire suture, a [id number] repair was carried out with running sutures and a successful primary repair of the deltoid ligament was achieved with good stability achieved at the medial joint. Final fluoroscopic imaging of the screw was then obtained to confirm maintenance of an anatomic reduction and good screw length and placement of hardware with no intraarticular extension of the screw threads. The wound was copiously irrigated, and deep tissue re-approximated with #1 Vicryl suture followed by subcutaneous tissue, re-approximated with 2-0 Vicryl suture followed by bereket for skin. Of note, prior to proceeding with the open reduction and internal fixation and placement of fixation hardware for the medial malleolus fracture, while the fracture was exposed, we displaced the fracture which allowed for access to the medial aspect of the ankle joint, and the ankle joint was copiously irrigated, and there was some debris and hematoma evacuated from essentially an arthrotomy to the medial aspect of the ankle joint. The ankle joint was evaluated, and the talus did not exhibit an obvious zone of significant cartilage damage or fracture as well as the distal tibia. OPEN SYNDESMOTIC FIXATION/REPAIR: We then turned our attention to the syndesmotic fixation and a posterior lateral incision based on the distal fibula was carried out through the skin down to the subcutaneous tissue while maintaining good hemostasis down to the posterior lateral aspect of the distal fibula. The perineal tendons were carefully retracted posteriorly to allow for access to the lateral aspect of the distal fibula. The periosteum was sharply incised and elevated. This allowed for good soft tissue coverage over the TightRope buttons. The first TightRope would be placed 1.5 cm proximal to the tibiotalar joint. Fluoroscopic imaging was used to confirm this optimal position, and the K-wire was then advanced through all 4 cortexes with a 30-degree posterior to anterior inclination. The K-wire was placed parallel to the tibiotalar joint in good [id number] angle achieved. The cannulated drill was passed over the K-wire which confirmed good position through all 4 cortexes, and the K-wire and drill were removed. The path for the TightRope was established, and the TightRope was passed through all 4 cortexes, and under direct fluoroscopic visualization, the TightRope button was flipped with no interposed soft tissue directly on to the distal tibia medial bone. A large periarticular reduction clamp was then placed, and the syndesmotic widening was reduced to an anatomic position with pressure placed by the large periarticular clamp through the lateral malleolus to the medial malleolus. The TightRope was then cinched down, and the button sat nicely on the distal fibula and tightened down under direct visualization. Fluoroscopic imaging confirmed that the medial button was well seated on cortical bone with no interposed soft tissue, and the syndesmosis was indeed closed down and reduced/repaired. A second syndesmotic TightRope was placed 1 cm proximal to the first one using the same technique, but this time drilled in a mutual plane from lateral to medial with no anterior to posterior inclination. Once the second K-wire was placed in a good position and confirmed with biplanar fluoroscopic imaging, the cannulated reamer was passed over the K-wire and the second TightRope was passed with the medial button flipped directly onto bone with fluoroscopic visualization confirming no interposed soft tissue. The fibular-sided button was then cinched down and sat directly on the bone. The large periarticular clamp was removed after both TightRopes were tightened down again. A post-fixation stress examination was carried out and indeed syndesmotic stability was achieved. The tourniquet at that point was deflated with a total tourniquet time of 65 minutes at 350 mmHg. The lateral wound was copiously irrigated, and deep tissue and periosteum re-approximated with #1 Vicryl suture over the two TightRope buttons. Subcutaneous tissue was re-approximated with 2-0 Vicryl suture followed by bereket for skin. A final fluoroscopic imaging before the cast was placed was obtained, confirming that the syndesmosis was indeed repaired and stable as well as the deltoid ligament and the medial malleolus fracture anatomic reduction was maintained with the screw and washer in good position. Sterile dressings were applied to the medial and lateral wounds, followed by placement of sterile cast padding from the toes up to the tibial tuberosity. A well-padded short-leg cast was then placed. A closed reduction maneuver was carried out reducing the posterior malleolus into an anatomic position as well as closing down the space for the anterior talofibular ligament to allow for successful conservative treatment and scarring down of the ligament in the cast. Once the cast hardened, the patient was then extubated and transferred to PACU in stable condition. JUSTIFICATION FOR CODING AND BILLIN. Open reduction and internal fixation of the medial malleolus was carried out successfully with the addition of bone graft at the anterior aspect of the bone defect. Therefore, open reduction and internal fixation of medial malleolus fracture was coded and billed. 2. Open primary repair of the deltoid ligament was carried out successfully, and therefore was coded and billed as an independent part of the procedure. 3. Open syndesmotic repair and fixation was carried out successfully, and therefore was coded and billed. 4. A closed reduction of the posterior malleolus was carried out successfully with an anatomic reduction achieved. Therefore, posterior malleolus closed reduction was coded and billed. 5. The ATFL was treated closed successfully, and therefore coded and billed as a closed treatment of the anterior talofibular ligament tear and ankle instability. 6. A well-padded short-leg cast was placed, and therefore coded and billed. DISPOSITION: The patient will return to his inpatient bed and will work with physical therapy to be strict nonweightbearing to the left lower extremity. Cast care has been discussed at length with the patient. He will be discharged home most likely today and will be discharged with adequate pain medication for pain control and is advised to take aspirin 325 twice daily, starting postoperative day #1. He will follow up in my office within 1 week, and already he has his postoperative appointment set up. He will contact me directly with any questions or concerns. Lizzy Dai MD
== END 2018-03-12 16:25 | disposition home or self-care (01) | DRG 494 ==
LOC: C.ER 14:18 → C.9E 14:40 → C.6T 18:09
PROVIDERS: ADMIT Hospitalist; ATTEND Hospitalist
PROC: 3E0T3BZ Introduction of Anesthetic Agent into Peripheral Nerves and Plexi, Percutaneous Approach (ICD-10-PCS; 2018-03-12)
PROC: 0MQR0ZZ Repair Left Ankle Bursa and Ligament, Open Approach (ICD-10-PCS; 2018-03-12)
PROC: 0QSH04Z Reposition Left Tibia with Internal Fixation Device, Open Approach (ICD-10-PCS; principal; 2018-03-12 12:00)
DX: S82.52XA Displaced fracture of medial malleolus of left tibia, initial encounter for closed fracture (principal); X50.1XXA Overexertion from prolonged static or awkward postures, initial encounter; Y92.322 Soccer field as the place of occurrence of the external cause; Y93.66 Activity, soccer; J45.909 Unspecified asthma, uncomplicated